=== PATIENT | male | born 1970 | race Caucasian/White ===

== ENCOUNTER 2022-04-04 00:20 | Day surgery (SDC) | payer OTHER, SELFPAY ==
[2022-03-27 14:44] VITALS: BMI 24.9
[2022-04-04 06:20] VITALS: PULSE 87; RESP 18; TEMP 36.3; O2SAT 100; BMI 24.3
[2022-04-04] MEDS: LACTATED RINGERS 1,000 ML 150 ML IV CONT ×2 (06:35→07:42)
--- NOTE | 2022-04-04 06:59 | WPDANESEPPF ---
Anes - Initial Pre Proc Eval Procedure: Operation Date: 04/04/22 07:30 Proposed Procedures p Screening Colonoscopy - Tomer Traylor MD Date/Time: 04/04/22 06:59 Surgeon: Tomer Traylor MD Pre Op Diagnosis: neoplasm screening, family hx of colon cancer Patient Data Age: 51 Gender: M Height: 1.68 m Weight: 68.2 kg Last Vital Signs Temp 36.3 C L 04/04/22 06:20 Pulse 87 04/04/22 06:20 Resp 18 04/04/22 06:20 Pulse Ox 100 04/04/22 06:20 O2 Del Method Room Air 04/04/22 06:20 Allergies Allergy/AdvReac Type Severity Reaction Status Date / Time No Known Allergies Allergy Verified 03/27/22 14:45 Home Medications Medication Instructions Recorded Confirmed Type bupropion HCl 150 mg tablet,12 hr 150 mg PO BID #60 tabs 02/10/22 03/27/22 Rx sustained-release valacyclovir 500 mg tablet 500 mg PO DAILY #30 tabs 02/10/22 03/27/22 Rx sodium,potassium,mag sulfates 17.5 See Rx Instructions PO .COMPLEX 03/03/22 03/27/22 Rx gram-3.13 gram-1.6 gram oral soln #354 mL (Suprep Bowel Prep Kit) Patient hx anesthesia problems: none Family hx anesthesia problems: none Results Review: All pre-operative results and documents have been reviewed as part of the pre-operative evaluation. [facility] Past Medical History Medical History (Updated 04/04/22 @ 07:04 by Ronni Harman MD) HSV-2 infection JHONATHAN (obstructive sleep apnea) Tobacco use disorder, severe, dependence Family History Family History Sibling Carcinoma of colon Social History Social History Smoking packs per day: 1 Smoking cigarettes per day: 20.0 Years smoked: 30 Smoking pack-years: 30.00 Smoking status: Current every day smoker Tobacco type: cigarettes Alcohol intake: current Drinks per week: 20 Alcohol use details: occasionally Substance use: current Substance use type: marijuana Living arrangements: with family 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 Gender identity (if verbalized by the patient): Male Sexual Orientation (if Verbalized by the Patient): Straight or Heterosexual Spiritual care concerns: No Agree to blood products: Yes Anes - Eval Final PreProcedure Day of Procedure 04/04/22 06:59 Patient weight: normal Heart: regular rate and rhythm Lungs: clear to auscultation Airway: Mallampati scale class II Neurological: alert and oriented Last oral intake: >/= 8 hours ASA classification: II Emergent: no Anesthetic plan: proceed Anesthesia type and monitoring: general GIVS and standard monitoring Results Review: All pre-operative results and documents have been reviewed as part of the pre-operative evaluation. Informed Consent: The patient's anesthetic plan and its attendant risks and benefits were discussed with the patient/family/POA. Questions were solicited and answers provided to the satisfaction of the patient/family/POA.
--- NOTE | 2022-04-04 07:21 | PM.HPGS ---
History of Present Illness History of Present Illness Consent: Risks, benefits, and alternatives have been discussed and questions answered. Patient agrees to proceed with procedure. Chief complaint: neoplasm screening, family hx of colon cancer Narrative: Cuauhtemoc Rivas is a 51 year old male Presents for screening colonoscopy. Patient's current weight appetite bowel movements are normal. Patient denies abdominal pain. He has had no bleeding. Family history is significant that his twin sister was recently identified with colon cancer. Patient presents today for screening colonoscopy Review of Systems Review of Systems: review of systems noncontributory. [facility] Past Medical History Medical History (Updated 04/04/22 @ 07:22 by Tomer Traylor MD) HSV-2 infection JHONATHAN (obstructive sleep apnea) Tobacco use disorder, severe, dependence Family History Family History Sibling Carcinoma of colon Social History Social History Smoking packs per day: 1 Smoking cigarettes per day: 20.0 Years smoked: 30 Smoking pack-years: 30.00 Smoking status: Current every day smoker Tobacco type: cigarettes Alcohol intake: current Drinks per week: 20 Alcohol use details: occasionally Substance use: current Substance use type: marijuana Living arrangements: with family 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 Gender identity (if verbalized by the patient): Male Sexual Orientation (if Verbalized by the Patient): Straight or Heterosexual Spiritual care concerns: No Agree to blood products: Yes Meds Home Medications and Allergies Home Medications Medication Instructions Recorded Confirmed Type bupropion HCl 150 mg tablet,12 hr 150 mg PO BID #60 tabs 02/10/22 03/27/22 Rx sustained-release valacyclovir 500 mg tablet 500 mg PO DAILY #30 tabs 02/10/22 03/27/22 Rx sodium,potassium,mag sulfates 17.5 See Rx Instructions PO .COMPLEX 03/03/22 03/27/22 Rx gram-3.13 gram-1.6 gram oral soln #354 mL (Suprep Bowel Prep Kit) Allergies Allergy/AdvReac Type Severity Reaction Status Date / Time No Known Allergies Allergy Verified 03/27/22 14:45 Vital Signs Vital Signs - 24 hr 04/04/22 06:20 Temperature 97.4 F L Pulse Rate 87 Respiratory Rate 18 Pulse Oximetry 100 Oxygen Delivery Room Air Exam Narrative: Physical exam reveals patient to be alert. Vital signs stable. HEENT exam is unremarkable. Patient is anicteric. Lungs are clear to auscultation and percussion. Heart is without murmur or extra sounds. Abdomen bowel sounds are present soft nontender with no organomegaly. Digital external rectal exam is normal. Assessment and Plan Assessment and plan (1) Family hx of colon cancer: Code(s): Z80.0 - Family history of malignant neoplasm of digestive organs Status: Acute Assessment and Plan: Patient's sister has had colon cancer. Plan for screening colonoscopy now and consider this at a 5 year intervals in the future.
[2022-04-04 07:43] VITALS: BP 101/68; PULSE 73; RESP 21; O2SAT 95
[2022-04-04 07:53] VITALS: BP 104/72; PULSE 70; RESP 21; O2SAT 94
[2022-04-04 08:03] VITALS: BP 124/81; PULSE 61; RESP 20; O2SAT 99
== END 2022-04-04 08:10 | disposition home or self-care (01) ==
PROVIDERS: PCP Family Medicine; Visit Provider Internal Medicine Gastroenterology
PROC: 0DJD8ZZ Inspection of Lower Intestinal Tract, Via Natural or Artificial Opening Endoscopic (ICD-10-PCS; CPT 45378; principal; 2022-04-04 07:30)
DX: Z12.11 Encounter for screening for malignant neoplasm of colon (principal); D12.5 Benign neoplasm of sigmoid colon; K63.5 Polyp of colon; Z80.0 Family history of malignant neoplasm of digestive organs; G47.33 Obstructive sleep apnea (adult) (pediatric); B00.9 Herpesviral infection, unspecified; F17.210 Nicotine dependence, cigarettes, uncomplicated; F12.90 Cannabis use, unspecified, uncomplicated
CPT/HCPCS: 45385; 88305; J2704; J7120

== ENCOUNTER → 2023-03-25 10:47 | Outpatient (CLI) | payer BC, SELFPAY ==
--- NOTE | ~2023-03-25 | CT_ITS ---
EXAMINATION: CT lung screening DATE: 03/25/2023 11:07 INDICATION: Personal history of nicotine dependence TECHNIQUE: Computed tomography (CT) of the chest was performed without intravenous contrast. The dose -length product was 100.21 mGy-cm. Automated exposure control and iterative reconstruction technique were employed. COMPARISON: None FINDINGS: Heart size is normal. No significant pleural or pericardial effusion. Upper abdomen is unre markable. No thoracic lymphadenopathy. Mild emphysema. No endobronchial lesions. There is a 3 mm fiss ural nodule on the right, image 71. No endobronchial lesions. No pneumothorax. There is a paramediast inal 3 mm nodule in the left in the upper lobe. IMPRESSION: 1. Lung-RADS category 2: Benign appearance or behavior. Continue annual screening with noncontrast lo w-dose chest CT in 12 months. Reviewed, dictated and finalized at location B. IMPRESSION: 1. Lung-RADS category 2: Benign appearance or behavior. Continue annual screeni ng with noncontrast low-dose chest CT in 12 months.
== END ==
PROVIDERS: PCP Physician Assistant Medical; Visit Provider Physician Assistant Medical
DX: Z12.2 Encounter for screening for malignant neoplasm of respiratory organs (principal); R91.8 Other nonspecific abnormal finding of lung field; Z87.891 Personal history of nicotine dependence
CPT/HCPCS: 71271

== ENCOUNTER 2024-11-18 13:45 | Emergency (ER) | payer BC, SELFPAY ==
[2024-11-18 13:53] VITALS: BP 148/86; PULSE 78; RESP 18; TEMP 36.8; O2SAT 97
--- NOTE | 2024-11-18 14:01 | ED_ITS ---
HPI - Ear Problem General Chief complaint: Ear Stated complaint: Water in RT Ear Time Seen by Provider: 11/18/24 13:55 Source: patient and RN notes reviewed Mode of arrival: ambulatory Limitations: no limitations History of Present Illness HPI Narrative: Patient presents today complaining of avoid hearing and possible water in his right ear x1 week. Last weekend he was swimming quite a bit and believes that he has water trapped. Denies pain or drainage. He has tried some swimmer's ear drops without improvement of symptoms. He does use Q-tips. Denies any recent illness. Related Data Home Medications ?Medication ?Instructions ?Recorded ?Confirmed ?Last Taken ?Type No Home Medications 11/18/24 11/18/24 Unknown History Allergies Allergy/AdvReac Type Severity Reaction Status Date / Time No Known Allergies Allergy Verified 11/18/24 13:47 Review of Systems Review of Systems: CONSTITUTIONAL: Denies body aches, fever, chills, or sweats. EYES: Denies visual changes, redness, or discharge. ENT: Denies rhinorrhea, congestion, sore throat. + right ear muffling CARDIOVASCULAR: Denies chest pain, palpitations, or edema. RESPIRATORY: Denies cough or dyspnea. GASTROINTESTINAL: Denies abdominal pain, nausea, vomiting, or diarrhea. GENITOURINARY: Denies dysuria or hematuria. SKIN: Denies rash, itching, or wounds. MUSCULOSKELETAL: Denies back pain, joint pain, or myalgia. NEUROLOGIC: Denies headache, numbness, tingling, or weakness. PSYCH: Denies depression or anxiety. [facility] Past Medical History Medical History JHONATHAN (obstructive sleep apnea) HSV-2 infection Tobacco use disorder, severe, dependence Family History Family History Sibling Carcinoma of colon Social History Social History Smoking packs per day: 1 Smoking cigarettes per day: 20.0 Years smoked: 30 Smoking pack-years: 30.00 Smoking status: Current every day smoker (1 pack per day) Tobacco type: cigarettes Alcohol intake: current Drinks per week: 20 Alcohol use details: occasionally Substance use: current Substance use type: marijuana Living arrangements: with family Occupation/Education: occupation 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 Please see nursing chart for further information. There is no relevant family history pertinent to the presenting complaint Exam Narrative: GENERAL: Well-appearing, well-nourished, and in no acute distress. HEAD: Normocephalic, atraumatic. EYES: EOMI. No redness or drainage. Conjunctivae normal. ENT: Mucous membranes pink and moist. Right ear: No movement or tragal tenderness. Canal normal. Cerumen impaction present. See procedure note. Left ear normal NECK: Normal AROM. CHEST: No respiratory distress. EXTREMITIES: Normal range of motion. No edema. SKIN: Warm, dry, no rash. Capillary refill normal. Normal skin turgor. NEURO: No focal deficits. Alert and oriented x3. Gait steady. PSYCH: Normal affect. No signs of depression or anxiety. Course Course Level of Care: Express Care Visit Vital Signs Vital signs: Vital Signs Temperature 98.3 F 11/18/24 13:53 Pulse Rate 78 11/18/24 13:53 Respiratory Rate 18 11/18/24 13:53 Blood Pressure 148/86 H 11/18/24 13:53 Pulse Oximetry 97 11/18/24 13:53 Oxygen Delivery Room Air 11/18/24 13:53 Temperature 98.3 F 11/18/24 13:53 Pulse Rate 78 11/18/24 13:53 Respiratory Rate 18 11/18/24 13:53 Blood Pressure 148/86 H 11/18/24 13:53 Pulse Oximetry 97 11/18/24 13:53 Oxygen Delivery Room Air 11/18/24 13:53 Reviewed Procedures Ear Wax Removal Right Ear: Ear Wax Removal Date: 11/18/24 Ear Wax Removal Time: 14:11 Cerumenolytic Used: other (Water and peroxide) Results: Re-examined: cerumen removed completely TM Examination: TM(s) intact, normal appearance Ear Canal Exam: atraumatic Patient Tolerated Procedure: well Complications: no problems Technique: ear canal irrigated Medical Decision Making MDM Narrative Medical decision making narrative: Patient is a pleasant 54-year-old male with right-sided cerumen impaction. Cerumen was completely removed with irrigation. Canal and TM appear normal after removal. Education given regarding discontinuing Q-tip use. Patient amenable. Vital signs stable. Differential Diagnosis Differential Diagnosis: Otitis media, otitis externa, ruptured TM, serous otitis, cerumen impaction Vital Signs Vital Signs: Vital Signs Temperature 98.3 F 11/18/24 13:53 Pulse Rate 78 11/18/24 13:53 Respiratory Rate 18 11/18/24 13:53 Blood Pressure 148/86 H 11/18/24 13:53 Pulse Oximetry 97 11/18/24 13:53 Oxygen Delivery Room Air 11/18/24 13:53 Temperature 98.3 F 11/18/24 13:53 Pulse Rate 78 11/18/24 13:53 Respiratory Rate 18 11/18/24 13:53 Blood Pressure 148/86 H 11/18/24 13:53 Pulse Oximetry 97 11/18/24 13:53 Oxygen Delivery Room Air 11/18/24 13:53 Critical Care Time Critical Care Time Critical Care Time: No Discharge Plan Discharge Clinical Impression: Impacted cerumen of right ear Patient Disposition: Home Condition: Stable Additional Instructions: Your ear canal has been irrigated to remove wax in your hearing has been restored. There is no indication of infection or fluid. Please discontinue using Q-tips in your ear canal. Follow-up with your PCP with any additional concerns. Your blood pressure was elevated above 120/80 today at Urgent Care. This puts you above the threshold for follow up. Please schedule a followup visit with your personal physician as soon as possible, for further evaluation and treatment. Even blood pressure exceeding 120/80 may indicate pre-hypertension. Patient Language: Albanian Prescriptions: No Action No Home Medications Follow-up/Referrals: Aruna Malagon MD [Primary Care Provider] - Time of Disposition: 14:12
== END 2024-11-18 14:13 | disposition home or self-care (01) ==
PROVIDERS: Emergency Provider Nurse Practitioner; PCP Family Medicine
DX: H61.21 Impacted cerumen, right ear (principal)
CPT/HCPCS: 69209; 99212; A9270; G0463